=== PATIENT | female | born 1990 | race Caucasian/White ===

== ENCOUNTER 2020-10-06 23:23 | Emergency (ER) | payer OTHER ==
[2020-10-07 00:58] LABS: BASOPHIL 0.6 % (0-2); EOSINOPHIL 1.2 % (0-5); HCT 36.7 % (37.0-47.0); LYMPHOCYTE 21.9 % (15-48); MCH 28.4 pg (25.0-31.0); MCHC 32.7 g/dL (32.0-36.0); MCV 86.8 fL (78.0-100.0); MONOCYTE 7.2 % (0-12); MPV 9.7 fL (6.0-9.5); NEUTROPHIL 68.7 % (41-80); NRBC 0; PLT 448 K/uL (150-400); RBC 4.23 M/uL (4.20-5.40); WBC 13.9 K/uL (4.0-10.5)
[2020-10-07 01:20] LABS: ALBUMIN 3.4 g/dL (3.4-5.0); BILIRUBIN - TOTAL 0.1 mg/dL (0.2-1.0); BUN/CREAT RATIO (CALC) 19.1 RATIO; CREATININE 0.68 mg/dL (0.51-0.95); GLOBULIN (CALCULATION) 3.9 g/dL; POTASSIUM 4.1 mmol/L (3.5-5.1); TOTAL PROTEIN 7.3 g/dL (6.4-8.2)
[2020-10-07 01:30] LABS: BILIRUBIN NEGATIVE (NEGATIVE); BLOOD TRACE-INTACT Ery/uL (NEGATIVE); CLARITY CLEAR (CLEAR); COLOR YELLOW (YELLOW); GLUCOSE (U) NORMAL (NORMAL); LEUKOCYTES NEGATIVE Leu/uL (NEGATIVE); NITRITE NEGATIVE (NEGATIVE); PROTEIN NEGATIVE (NEGATIVE); SPECIFIC GRAVITY 1.015 (1.001-1.030); UROBILINOGEN 0.2 mg/dL (0.2-1.0)
[2020-10-07 01:48] LABS: URINARY RBC RARE
== END 2020-10-07 06:07 | disposition home or self-care (01) ==
LOC: FER 23:23
PROVIDERS: Emergency Medicine
DX: O46.91 Antepartum hemorrhage, unspecified, first trimester (principal); Z3A.08 8 weeks gestation of pregnancy
CPT/HCPCS: 36415; 76830; 80053; 81001; 84702; 85025